=== PATIENT | female | born 1965 | race Caucasian/White ===

== ENCOUNTER 2017-02-24 08:21 | Emergency (ER) | payer OTHER, SELFPAY ==
[2017-02-24] MEDS ORDERED: Sodium Chloride 0.9% 1,000 ML BAG ONE (08:27)
[2017-02-24] MEDS ORDERED: Ketorolac Tromethamine 30 MG/ML VIAL ONE (08:57)
[2017-02-24] MEDS ORDERED: Meclizine HCl 25 MG TAB ONE (09:59)
[2017-02-24] MEDS ORDERED: Metoclopramide HCl 10 MG/2 ML VIAL ONE (13:33)
[2017-02-24] MEDS ORDERED: methylPREDNISolone Sod Succ/PF 125 MG/2 ML VIAL ONE (13:33)
[2017-02-24] MEDS ORDERED: Ondansetron HCl/PF 4 MG/2 ML Vial ONE (13:33)
[2017-02-24] MEDS ORDERED: Dexamethasone 10 MG/ML VIAL ONE (13:33)
[2017-02-24] MEDS ORDERED: Acyclovir 200 mg Capsule ONE (13:33)
== END 2017-02-24 10:45 | disposition home or self-care (01) ==
LOC: MADERS 08:21
DX: B02.9 Zoster without complications (principal); G43.909 Migraine, unspecified, not intractable, without status migrainosus; G62.9 Polyneuropathy, unspecified; K21.9 Gastro-esophageal reflux disease without esophagitis; E78.5 Hyperlipidemia, unspecified; I10 Essential (primary) hypertension
CPT/HCPCS: 87070; 87205; 96361; 96374; 96375; J1100; J1885; J2405; J2765; J2930; J7050